=== PATIENT | male | born 1950 | race Caucasian/White ===

== ENCOUNTER 2019-04-07 18:07 | Emergency (ER) | payer BC ==
[2019-04-07] MEDS ORDERED: Famotidine IV* 10 MG/ML 2 ML (20 mg) IV SLOW PU ONE (18:18)
[2019-04-07] MEDS ORDERED: Famotidine IV* 10 MG/ML 2 ML (20 mg) ONE (18:18)
[2019-04-07] MEDS ORDERED: NS 0.9% 1000 ML** 1,000 ML IV ONE (18:19)
[2019-04-07] MEDS ORDERED: diPHENhydraMINE IV* 50 MG/ML 1 ml VIAL (BENADRYL) IV ONE (18:21)
[2019-04-07] MEDS ORDERED: methylPREDNISolone 125 MG* 2 ML VIAL IV ONE (18:21)
[2019-04-07 18:43] VITALS: BP 161/74
--- NOTE | 2019-04-18 22:05 | ED ---
Allergic Reaction/Systemic - HPI Summary HPI Summary: 68 yo WM presnets with right facial swelling after being bitten by a yellow jacket in right buccal mucosa. Dnies h/o allergic reaction to bee sting in the past. Denies SOB, changes in voice or respiratory complaints or rash. Denies CP , f/c - History of Current Complaint Chief Complaint: UCAllergicReaction Time Seen by Provider: 04/07/19 18:18 Hx Obtained From: Patient Onset/Duration: Sudden Onset Timing: Lasting Minutes Severity Initially: Moderate Severity Currently: Moderate Pain Intensity: 1 Pain Scale Used: 0-10 Numeric Character: Swelling, Pruritus - Allergies/Home Medications Allergies/Adverse Reactions: Allergies Allergy/AdvReac Type Severity Reaction Status Date / Time No Known Allergies Allergy Verified 04/07/19 18:17 Home Medications: Home Medications Atorvastatin* [Lipitor*] 10 mg PO 1700 04/07/19 [History Confirmed 04/07/19] PMH/Surg Hx/FS Hx/Imm Hx Endocrine/Hematology History: Denies: Hx Diabetes, Hx Thyroid Disease Cardiovascular History: Reports: Hx Hypertension Respiratory History: Denies: Hx Asthma, Hx Chronic Obstructive Pulmonary Disease (COPD) GI History: Denies: Hx Ulcer Infectious Disease History: No Infectious Disease History: Denies: Hx Hepatitis, Hx Human Immunodeficiency Virus (HIV), Traveled Outside the [place] in Last 30 Days - Family History Known Family History: Positive: Non-Contributory - Social History Alcohol Use: None Substance Use Type: Reports: None Smoking Status (MU): Never Smoked Tobacco Review of Systems Constitutional: Negative Eyes: Negative ENT: Negative Cardiovascular: Negative Respiratory: Negative Positive: Arthralgia Skin: Other - see HPI Neurological: Negative Psychological: Normal All Other Systems Reviewed And Are Negative: Yes Physical Exam Vital Signs On Initial Exam: Initial Vitals Temp Pulse Resp BP Pulse Ox 37.1 C 74 18 165/77 100 04/07/19 18:13 04/07/19 18:13 04/07/19 18:13 04/07/19 18:13 04/07/19 18:13 Appearance: Positive: Well-Appearing Skin: Positive: Warm, Erythema @, Other - swollen right madible, inside right buccal mucosa and right side of lips Head/Face: Positive: Temporal Artery Tenderness ENT: Positive: Normal ENT inspection Respiratory/Lung Sounds: Positive: Clear to Auscultation, Breath Sounds Present Cardiovascular: Positive: Normal Abdomen Description: Positive: Nontender Musculoskeletal: Positive: Normal Neurological: Positive: Normal Psychiatric: Positive: Normal Diagnostics - Vital Signs Vital Signs Temp Pulse Resp BP Pulse Ox 04/07/19 18:38 36.9 C 60 16 161/74 100 04/07/19 18:25 36.6 C 59 17 178/95 100 04/07/19 18:13 37.1 C 74 18 165/77 100 - Laboratory Lab Statement: Any lab studies that have been ordered have been reviewed, and results considered in the medical decision making process. Allergic Reaction Course/Dx - Course Course Of Treatment: PT transferred to [facility] for observation as swelling is close to airway - IVF, IV solumedrol, IV benadryl on board and pt trasnferred via ambulance, charge nurse in [facility] informed - Diagnoses Provider Diagnoses: Allergic reaction to bee sting - Provider Notifications Instructed by Provider To: Transfer - Informed charge nurse in [facility] of pt's transfer - Critical Care Time Critical Care Time: 30-74 min Discharge ED - Sign-Out/Discharge Documenting (check all that apply): Patient Departure All imaging exams completed and their final reports reviewed: No Studies - Discharge Plan Condition: Stable Disposition: TRANS HIGHER LVL OF CARE FAC Referrals: Calixto Mccurdy MD [Primary Care Provider] - - Billing Disposition and Condition Condition: STABLE Disposition: Trans Higher Lvl of Care Fac
== END 2019-04-07 18:53 | disposition short-term general hospital (02) ==
LOC: UCEAST 18:07
DX: T63.441A Toxic effect of venom of bees, accidental (unintentional), initial encounter (principal); R22.0 Localized swelling, mass and lump, head; Y92.9 Unspecified place or not applicable; I10 Essential (primary) hypertension
CPT/HCPCS: 96360; 96374; 96375; 99213; G0463; J1200; J2930

== ENCOUNTER 2019-04-07 19:11 | Emergency (ER) | payer BC ==
--- NOTE | 2019-04-07 19:28 | ED ---
Allergic Reaction/Systemic - HPI Summary HPI Summary: This patient is a 68 year old M LAYO to ED via EMS with a chief complaint of yellow jacket sting to lower lip and lower lip swelling since 1644 today. Patient was in his garden when a yellow jacket flew into his mouth and stung him inside the right side of the lip. Patient has been stung before and denies having system reactions. He usually has local swelling. Patient iced the sting afterwards, but the lip kept swelling. Patient went to urgent care and received Pepcid, Benadryl, and Solu-Medrol and was sent here. The patient rates the pain 0/10 in severity. Symptoms aggravated by nothing. Symptoms alleviated by urgent care treatment. Patient denies SOB. - History of Current Complaint Chief Complaint: EDAllergicReaction Time Seen by Provider: 04/07/19 19:22 Hx Obtained From: Patient Onset/Duration: Sudden Onset, Started hours ago - Since 1644, Still Present Timing: Constant, Lasting Hours - Since 1644 Severity Initially: Moderate Severity Currently: Moderate Pain Intensity: 0 Pain Scale Used: 0-10 Numeric Location: Discrete @ - Lower lip Character: Swelling Aggravating Factor(s): Nothing Alleviating Factor(s): Other - Pepcid, Benadryl, Solu-Medrol, ice Associated Signs And Symptoms: Positive: Negative - SOB - Allergies/Home Medications Allergies/Adverse Reactions: Allergies Allergy/AdvReac Type Severity Reaction Status Date / Time No Known Allergies Allergy Verified 04/07/19 18:17 Home Medications: Home Medications Lisinopril TAB* [Prinivil TAB 10 MG*] 10 mg PO DAILY 04/07/19 [History Confirmed 04/07/19] Lisinopril/Hydrochlorothiazide [Lisinopril-Hctz 20-12.5 mg Tab] 1 tab PO DAILY 04/07/19 [History Confirmed 04/07/19] PMH/Surg Hx/FS Hx/Imm Hx Endocrine/Hematology History: Denies: Hx Diabetes, Hx Thyroid Disease Cardiovascular History: Reports: Hx Hypertension Respiratory History: Denies: Hx Asthma, Hx Chronic Obstructive Pulmonary Disease (COPD) GI History: Denies: Hx Ulcer - Surgical History Surgery Procedure, Year, and Place: previous removal of a foreign body from right wrist Infectious Disease History: No Infectious Disease History: Denies: Hx Hepatitis, Hx Human Immunodeficiency Virus (HIV), Traveled Outside the [place] in Last 30 Days - Family History Known Family History: Positive: Cardiac Disease - Social History Alcohol Use: None Hx Substance Use: No Substance Use Type: Reports: None Hx Tobacco Use: No Smoking Status (MU): Never Smoked Tobacco Review of Systems ENT: Other - Lip swelling Negative: Shortness Of Breath All Other Systems Reviewed And Are Negative: Yes Physical Exam - Summary Physical Exam Summary: Appearance: Well-appearing, Well-nourished, lying in bed comfortable Skin: Warm, dry, no obvious rash Eyes: sclera anicteric, no conjunctival pallor ENT: Marked swelling of the lower lip, extending out to the right side of the jaw. Rest of the oral pharynx is spared, there is no lingual edema. Neck: deferred Respiratory: No signs of respiratory distress Cardiovascular: Appears well perfused, pulses are nml Abdomen: deferred Musculoskeletal: Moving all 4 extremities without obvious discomfort Neurological: Awake and alert, mentation is normal, speech is fluent and appropriate Psychiatric: affect is normal, does not appear anxious or depressed Triage Information Reviewed: Yes Vital Signs On Initial Exam: Initial Vitals Temp Pulse Resp BP Pulse Ox 98.1 F 66 18 173/99 97 04/07/19 19:11 04/07/19 19:11 04/07/19 19:11 04/07/19 19:11 04/07/19 19:11 Vital Signs Reviewed: Yes Procedures - Sedation Patient Received Moderate/Deep Sedation with Procedure: No Diagnostics - Vital Signs Vital Signs Temp Pulse Resp BP Pulse Ox 04/07/19 19:11 98.1 F 66 18 173/99 97 - Laboratory Lab Statement: Any lab studies that have been ordered have been reviewed, and results considered in the medical decision making process. Re-Evaluation - Re-Evaluation First Eval Re-Evaluation Time: 20:59 Change: Improved Comment: Patient reports feeling better. Patient will be discharged home with dx of yellow jacket sting. Patient understands and agrees with this plan. Allergic Reaction Course/Dx - Course Course Of Treatment: This patient is a 68 year old M BIBA to ED via EMS with a chief complaint of yellow jacket sting to lower lip and lower lip swelling since 5 today. Patient received treatment at urgent care. Patient was watched in the ED. Upon re-evaluation, he reports feeling better. Patient will be discharged home with dx of yellow jacket sting. Patient understands and agrees with this plan. - Diagnoses Provider Diagnoses: Sting from hornet, wasp, or bee Discharge ED - Sign-Out/Discharge Documenting (check all that apply): Patient Departure - Discharge - Discharge Plan Condition: Good Disposition: HOME Prescriptions: predniSONE TAB* [Deltasone 20 MG TAB*] 40 mg PO DAILY 4 Days #8 tab Referrals: Calixto Mccurdy MD [Primary Care Provider] - If Needed Additional Instructions: Continue to use ice and antihistamines like benadryl or zyrtec to keep the swelling down. The prednisone will be for 4 days. Occasionally the swelling can get better then worsen again, a so called biphasic reaction, so if you see that happening come back or contact your PCP, as you may need to stay on the prednisone longer if that happens. - Billing Disposition and Condition Condition: GOOD Disposition: Home - Attestation Statements Document Initiated by Jerry: Yes Documenting Scribe: Gustavo Moore Provider For Whom Jerry is Documenting (Include Credential): Chris Higgins MD Scribe Attestation: IGustavo, scribed for Chris Higgins MD on 04/15/19 at 0022. Scribe Documentation Reviewed: Yes Provider Attestation: The documentation as recorded by the Gustavo meza accurately reflects the service I personally performed and the decisions made by me, Chris Higgins MD Status of [place] Document: Viewed
[2019-04-07 21:15] VITALS: BP 134/83
== END 2019-04-07 21:16 | disposition home or self-care (01) ==
LOC: ED 19:11
DX: T63.441A Toxic effect of venom of bees, accidental (unintentional), initial encounter (principal); R22.0 Localized swelling, mass and lump, head; Y92.096 Garden or yard of other non-institutional residence as the place of occurrence of the external cause; I10 Essential (primary) hypertension
CPT/HCPCS: 99283

== ENCOUNTER 2021-07-05 06:14 | Inpatient (IN) ==
[~2021-07-05 06:14] MED LIST: Buffered Lidocaine 1% SYRIN 1 ml INTRADERM ONE; Lactated Ringers 1000 ml BAG 1,000 ML IV SCH
[2021-07-05] MEDS ORDERED: ceFAZolin 2 GM in NS PREMIX 2 GM/100 ML BAG IVPB ONE (06:44)
[2021-07-05] MEDS ORDERED: Bupivacaine 0.5% 50 ML MDV VIAL ONE (07:06)
[2021-07-05] MEDS ORDERED: Vancomycin 1,000 MG VIAL ONE (07:06)
[2021-07-05] MEDS ORDERED: ROPIVACAINE 5 MG/ML 30 ML BTL (0.5%) ONE (07:33)
[2021-07-05] MEDS ORDERED: fentaNYL 250 mcg/5 ml 50 MCG/ML 5 ml VIAL (250 MCG) ONE (07:34)
[2021-07-05] MEDS ORDERED: Dexmedetomidine 200 mcg/2 ml 2 ml VIAL (200 mcg) ONE (07:34)
[2021-07-05] MEDS ORDERED: Midazolam 5 mg/5 ml VIAL 1 mg/ml 5 ml VIAL (5 mg) ONE ×2 (07:34→09:14)
[2021-07-05] MEDS ORDERED: fentaNYL 100 mcg/2 ml 50 MCG/ML VIAL IV PRN (11:15)
[2021-07-05] MEDS ORDERED: Ondansetron 4 mg VIAL 2 MG/ML 2 ml VIAL IV PRN ×2 (11:15→11:24)
[2021-07-05] MEDS ORDERED: oxyCODONE/Acetamin 5/325 mg TAB PO PRN (11:15)
[2021-07-05] MEDS ORDERED: DiMENhydriNATE IV 50 mg/ml 1 ml VIAL IV PUSH PRN (11:15)
[2021-07-05] MEDS ORDERED: Naloxone 0.4 mg VIAL 0.4 mg/ml 1 ml VIAL IV PRN (11:15)
[2021-07-05] MEDS ORDERED: Lactulose 30 ml UDC PO PRN (11:24)
[2021-07-05] MEDS ORDERED: diPHENhydraMINE 25 mg TAB PO PRN (11:24)
[2021-07-05] MEDS ORDERED: Magnesium Hydroxide LIQ 30 ML UDC PO PRN (11:24)
[2021-07-05] MEDS ORDERED: diPHENhydraMINE IV 50 MG/ML 1 ml VIAL (BENADRYL) IV PRN (11:24)
[2021-07-05] MEDS ORDERED: Morphine 2 MG/ML SYRINGE IV PRN (11:24)
[2021-07-05] MEDS ORDERED: Ondansetron ODT 4 mg TAB 4 MG TAB PO PRN (11:24)
[2021-07-05] MEDS: Lactated Ringers 1000 ml BAG 1,000 ML IV SCH ×2 (12:58→23:45)
[2021-07-05] MEDS: ceFAZolin 1 GM ADVAN 1 GM in NS 0.9% 50 ML 50 ML IVPB SCH ×2 (15:26→23:43)
[2021-07-05] MEDS: Magnesium Hydroxide LIQ 30 ML UDC PO SCH (20:16)
[2021-07-06 06:12] LABS: Hematocrit 32 % (42-52); Hemoglobin 11.1 g/dL (14.0-18.0); Mean Platelet Volume 7.7 fL (7.4-10.4); Platelet Count 168 10^3/uL (150-450)
[2021-07-06 06:38] LABS: Calcium 8.3 mg/dL (8.6-10.3); Potassium 3.9 mmol/L (3.5-5.0); eGFR CKD-EPI 93.3 (>60)
[2021-07-06] MEDS: ceFAZolin 1 GM ADVAN 1 GM in NS 0.9% 50 ML 50 ML IVPB SCH (08:04)
[2021-07-06] MEDS ORDERED: Vitamin THERAPEUTIC TAB PO SCH (09:00)
[2021-07-06] MEDS: Magnesium Hydroxide LIQ 30 ML UDC PO SCH (09:50)
[2021-07-06 11:04] VITALS: BP 143/68
== END 2021-07-06 13:45 | disposition home or self-care (01) | DRG 470 ==
LOC: AA 06:14 → SSU 12:32
PROVIDERS: ADMIT Orthopaedic Surgery; ATTEND Orthopaedic Surgery